=== PATIENT | male | born 1990 | race Caucasian/White ===

== ENCOUNTER → 2017-09-19 | Outpatient (CLI) | payer BC ==
[~2017-09-19] MED LIST: HYDR-5688 PO; LRT5 PO; OXYC-57; ZFRODT4 SL; [UNRECOGNIZED DRUG - REMARK]
[2017-09-19 12:14] LABS: BASO % 0.4 %; BASO ABS # 0.04 K/uL (0-0.2); COMPLETE YES; EOS % 1.2 %; HEMATOCRIT 44.7 % (42-52); IG% 0.4 %; LYMPH % 23.8 %; LYMPH ABS # 2.47 K/uL (1.2-3.4); MEAN CELL VOLUME 92.2 fL (80-100); MEAN CORPUSCULAR HEMOGLOBIN 32.6 pg (25-34); MEAN CORPUSCULAR HGB CONC 35.3 g/dl (32-36); MEAN PLATELET VOLUME 9.7 fL (7.4-10.4); MONO % 9.3 %; NEUT % 64.9 %; PLATELET COUNT 274 K/uL (130-400); RED BLOOD COUNT 4.85 M/uL (4.7-6.1); WHITE BLOOD COUNT 10.38 K/uL (4.8-10.8)
[2017-09-19 12:29] LABS: BLOOD UREA NITROGEN 6 mg/dl (7-18); BUN/CREATININE RATIO 8.4 (10-20); CALCIUM 8.7 mg/dl (8.5-10.1); CARBON DIOXIDE 28 mmol/L (21-32); CHLORIDE 105 mmol/L (98-107); CREATININE 0.69 mg/dl (0.60-1.40); GLUCOSE 91 mg/dl (70-99); POTASSIUM 4.5 mmol/L (3.5-5.1); SODIUM 138 mmol/L (136-145)
== END | disposition home or self-care (01) ==
LOC: C.LAB 11:21
PROVIDERS: ATTEND Physician Assistant Medical
DX: Z01.812 Encounter for preprocedural laboratory examination (principal); Z01.810 Encounter for preprocedural cardiovascular examination

== ENCOUNTER 2017-09-21 05:46 | Day surgery (SDC) | payer BC ==
[2017-09-20 08:21] VITALS: BMI 44.0
--- NOTE | 2017-09-20 10:43 | History and Physical ---
History & Physical Date Sep 20, 2017. Chief Complaint Patient presents a 26-year-old white male 5 foot 11:15 pounds with complaints of ongoing pain was left knee is a chondral lesion was patella chondral fracture enlarged once a conservative therapy and presents for chondroplasty History of Present Illness Continued pain about his left knee is Nourse wants to conservative therapy including physical therapy anti-inflammatories relative rest injection presents for arthroscopy chondroplasty The patient is a 26 year old male with complaints of Additional History Hepatic Disease: No Endocrine Disorder: No Kidney Disease: No Hypertension: No Heart Disease: No Bleeding Tendencies: No Infectious Diseases: No Allergies Coded Allergies: NO KNOWN DRUG ALLERGIES (Verified Allergy, Unknown, nkda, 09/20/17) Home Medications No Active Prescriptions or Reported Meds Physical Examination Skin: warm/dry, no rash Eyes: normal inspection, EOMI, sclerae normal ENT: normal ENT inspection, pharynx normal Head: normocephalic, atraumatic Neck: supple, no adenopathy, trachea midline Respiratory/Chest: lungs clear, normal breath sounds, no respiratory distress Cardiovascular: regular rate, rhythm, no edema, no murmur Abdomen / GI: normal bowel sounds, non tender Back: normal inspection Extremities: normal inspection, normal range of motion Diagnosis Patient is a 26-year-old white male with left knee with chondral fracture patella for arthroscopic evaluation possible chondroplasty Plan of Treatment Plan for arthroscopy arthroscopic chondroplasty patella P management DVT prophylaxis.
[~2017-09-21] VITALS: Ht 180.3 cm; Wt 143.0 kg
[2017-09-21] MEDS ORDERED: CEFAZOLIN 1000MG IV PUSH 5 ML IV SCH (06:00)
[2017-09-21] MEDS ORDERED: LACTATED RINGER'S 1000ML 1,000 ML IV SCH ×2 (06:00)
[2017-09-21] MEDS ORDERED: CEFAZOLIN 2000MG IV PUSH 10 ML IV SCH (06:00)
[2017-09-21 06:24] VITALS: BP 154/115; PULSE 114; TEMP 36.7; O2SAT 97; Ht 180.3 cm; Wt 143.0 kg
[2017-09-21] MEDS ORDERED: CEFAZOLIN SOD 3000MG/15 ML IV PUSH IV ONE (06:35)
--- NOTE | 2017-09-21 07:01 | History & Physical Bridge Note ---
H&P Re-Evaluation Bridge Note: I have examined the patient, reviewed the History & Physical and in the interval since the performance of the History & Physical I have noted the following changes of clinical significance: No changes noted
[2017-09-21] MEDS ORDERED: FENTANYL CITRATE INJ 50 MCG/1 ML 2 ML VIAL ONE (07:03)
[2017-09-21] MEDS ORDERED: PROPOFOL IV EMULSION 10 MG/ML 20 ML VIAL IV ONE (07:03)
[2017-09-21] MEDS ORDERED: LIDOCAINE HCL 2% 2 ML VIAL (20MG/ML) ONE (07:07)
[2017-09-21] MEDS ORDERED: SUCCINYLCHOLINE CHLORIDE 20 MG/ML 10 ML VIAL IV ONE (07:07)
[2017-09-21] MEDS ORDERED: DEXAMETHASONE SOD INJ 4 MG/ML VIAL ONE (07:07)
[2017-09-21] MEDS ORDERED: ONDANSETRON INJ 2 MG/ML 2 ML VIAL ONE (07:07)
[2017-09-21] MEDS ORDERED: ONDANSETRON INJ 2 MG/ML 2 ML VIAL IV PRN ×2 (07:15→08:45)
[2017-09-21] MEDS ORDERED: FLUMAZENIL 0.1 MG/1 ML 10 ML VIAL IV PRN (07:15)
[2017-09-21] MEDS ORDERED: PHENYLEPHRINE 100MCG/ML 5ML SYR IV PRN (07:15)
[2017-09-21] MEDS ORDERED: MEPERIDINE HCL 25 MG/ML CARP IV PRN (07:15)
[2017-09-21] MEDS ORDERED: HYDROmorphone INJ 2 MG/ML SYR/VIAL IV PRN (07:15)
[2017-09-21] MEDS ORDERED: LABETALOL HCL IV 5 MG/ML 20ML IV PRN (07:15)
[2017-09-21] MEDS ORDERED: EpHEDrine SULFATE INJ 50 MG/ML AMP IV PRN (07:15)
[2017-09-21] MEDS ORDERED: FENTANYL CITRATE INJ 50 MCG/1 ML 2 ML VIAL IV PRN (07:15)
[2017-09-21] MEDS ORDERED: ATROPINE SULFATE 0.1 MG/ML 5ML SYR IV PRN (07:15)
[2017-09-21] MEDS ORDERED: NALOXONE HCL 0.4 MG/1 ML VIAL/CARP IV PRN (07:15)
[2017-09-21] MEDS ORDERED: BUPIVACAINE/EPINEPHRINE 0.5% MPF 1:200,000 30 ML VIAL ONE (08:33)
[2017-09-21] MEDS ORDERED: KETOROLAC TROMETHAMINE 30 MG/ML VIAL ONE (08:43)
[2017-09-21] MEDS ORDERED: MoRPHine SULFATE 2 MG/ML CARP IV PRN (08:45)
[2017-09-21] MEDS ORDERED: OXYCODONE HCL IR 5 MG TAB (IMMEDIATE RELEASE) PO PRN ×2 (08:45)
[2017-09-21] MEDS ORDERED: KETOROLAC TROMETHAMINE 30 MG/ML VIAL IV. PRN (08:45)
[2017-09-21] MEDS ORDERED: PHENYLEPHRINE 100MCG/ML 5ML SYR ONE (08:49)
--- NOTE | 2017-09-21 08:51 | Discharge Instructions ---
Discharge Instructions Date of Service Sep 21, 2017. Visit Reason for Visit: Left Knee Chondromalacia Patellae Discharge Discharge Diagnosis / Problem: Left Knee Chondromalacia Discharge Goals Goal(s): Decrease discomfort, Improve function, Increase independence Activity Recommendations Activity Limitations: per Instructions/Follow-up section Weightbearing Status: Left weightbearing (as tolerated) Anesthesia . Post Anesthesia Instructions: If you have had General Anesthesia or IV Sedation: * Do not drive today. * Resume driving when surgeon permits. * Do not make important decisions or sign legal documents today. * Call surgeon for: 1. Temperature elevations greater than 101 degrees F. 2. Uncontrollable pain. 3. Excessive bleeding. 4. Persistent nausea and vomiting. 5. Medication intolerance (nausea, vomiting or rash). * For nausea and vomiting use only clear liquids such as: tea, soda, bouillon until nausea subsides, then gradually increase diet as tolerated. * If you have any concerns or questions, call your surgeon's office. If physician is unavailable and it is an emergency, call 911 or go to the nearest emergency room. . Instructions / Follow-Up Instructions / Follow-Up ACTIVITY RECOMMENDATIONS: * You may walk on the leg with or without crutches as comfort permits. * Bending of the knee should start at once. * Do not shower for 48 hours following surgery. SPECIAL CARE INSTRUCTIONS: * You may cleanse the skin adjacent to the small wounds with soap and water at the time of the first dressing change. * The application of an ice bag to the front and sides of the knee will decrease swelling and discomfort for the first 48 hours. * The small incisions may be sore and develop bruising. This bruising does not require any special care. SPECIAL PRECAUTIONS: * If you experience unusual pain unrelieved by prescriptions, temperature elevation (100 degrees F. or above) or progressive swelling or bleeding, you should contact our office at for further evaluation. * You may have been prescribed pain medication. If you experience nausea and/or fine skin rash, discontinue this medication and contact our office at for an alternate medication. DRESSING: * Dressing should be comfortable and absorb any leakage of fluid and/or blood. * The dressing may become moist or bloodstained. * Dressing may be removed 48 hours after surgery and bandaids placed over the small surgical incisions. If can be removed sooner if it becomes very soiled or loose. * Bandaids may be used over next several days as needed and can be discontinued when there is not further drainage from the wounds. FOLLOW UP VISIT: If appointment is not already scheduled: Please call [facility] to make a follow-up appointment for 10 -14 days from the day of your surgery at . Diet Recommendations Recommended Home Diet: resume previous diet Pending Studies Studies pending at discharge: no Medical Emergencies . Who to Call and When: Medical Emergencies: If at any time you feel your situation is an emergency, please call 911 immediately. . Non-Emergent Contact Non-Emergency issues call your: Surgeon Call Non-Emergent contact if: temperature is above 101.5, your pain is not controlled, your pain is worsening, wound has increased drainage, wound has increased redness . . "Provider Documentation" section prepared by Leandro Allred. . [place] Drug Monitoring Program Search Results: patient reviewed within database, no issues identified
[2017-09-21] MEDS ORDERED: HYDR-5688 PO (08:52)
--- NOTE | 2017-09-21 09:09 | [facility] Operative Report ---
Operative Report Operative Date Sep 21, 2017. Pre-Operative Diagnosis Chondral lesion grade 3 patella with large symptomatically synovial plica Post-Operative Diagnosis Chondral lesion patella with large symptomatically medial synovial plica Procedure(s) Performed Arthroplasty patella for grade 3 chondral lesion medial lateral facet was resection medial synovial plica Surgeon Seth Demolition Worker Surgeon(s) none Estimated Blood Loss 2 mL Findings Patient presents with complaints of ongoing pain Nourse wants to conservative therapy for chondral lesion of his medial lateral facet of patella as well as large symptomatically medial synovial plica Complication(s) None Disposition Recovery Room / PACU Indications Patient presents been Nourse wants to conservative therapy including physical therapy anti-inflammatories relative rest activity modification presents a for arthroscopy times surgeries was grade 3 chondral lesion along medial lateral facet of patella chondroplasty as well as resection of medial synovial plica was performed. Description of Procedure After proper prepping draping left lower family or scopic examination revealed evidence of a large cinematic medial synovial plica is incised there was a chondral lesion stellate in nature grade 3 involving the patella was medial lateral facets a chondroplasty back to stable margin was performed the medial meniscus of his oxaprozin intact lateral meniscus was visualized and probed noted be intact the anterior posterior crucially was visualized and probed and intact no other significant the chondral defects were noted socially informed thorough chondroplasty resection of plical particular lateral debris was removed skin portals were closed 4-0 nylon injection of 20 mL of half percent Marcaine with epinephrine was injected patient was taken recovery in stable condition after placement of sterile compressive dressing I attest to the content of the Intraoperative Record and any orders documented therein. Any exceptions are noted below.
[2017-09-21] MEDS ORDERED: METOPROLOL TARTRATE 1 MG/ML VIAL ONE (09:39)
[2017-09-21] MEDS ORDERED: METOPROLOL TARTRATE 1 MG/ML VIAL IV STA (09:39)
--- NOTE | 2017-09-21 09:41 | Anesthesiology Progress Note ---
Anesthesia Post Op Note Date & Time Sep 21, 2017 at 09:40 Vital Signs Pain Intensity: 0 Vital Signs Past 12 Hours Date Time Temp Pulse Resp B/P (MAP) Pulse Ox O2 Delivery O2 Flow Rate FiO2 09/21/17 09:25 110 18 122/78 93 Room Air 09/21/17 09:15 110 15 138/68 96 Oxymask 8 09/21/17 09:05 36 117 16 140/82 94 Oxymask 8 09/21/17 06:24 36.7 114 24 154/115 (128) 97 Room Air Notes Mental Status: alert / awake / arousable, participated in evaluation Pt Amnestic to Procedure: Yes Nausea / Vomiting: adequately controlled Pain: adequately controlled Airway Patency, RR, SpO2: stable & adequate BP & HR: stable & adequate, see Notes Hydration State: stable & adequate Anesthetic Complications: no major complications apparent The patient is doing well. He was tachycardic at baseline and is being given a dose of metoprolol in the PACU. He is otherwise stable, awake, and comfortable.
[2017-09-21 09:50] VITALS: BP 150/67; PULSE 91; TEMP 36.5; O2SAT 92
[2017-09-21 10:20] VITALS: BP 149/64; PULSE 96; TEMP 36.5; O2SAT 92
[2017-09-21 10:50] VITALS: BP 157/85; PULSE 103; TEMP 36.5; O2SAT 94
== END 2017-09-21 10:45 | disposition home or self-care (01) ==
LOC: C.ACU 05:46
PROVIDERS: ATTEND Orthopaedic Surgery
DX: S82.015A Nondisplaced osteochondral fracture of left patella, initial encounter for closed fracture (principal); X58.XXXA Exposure to other specified factors, initial encounter; E66.01 Morbid (severe) obesity due to excess calories; I10 Essential (primary) hypertension; Z87.442 Personal history of urinary calculi

== ENCOUNTER 2022-03-02 11:59 | Inpatient (IN) ==
--- NOTE | 2022-03-02 12:37 | Emergency Department Note ---
Impression & Plan Hypoxia ADMIT ED Provider Note HPI: The patient is a morbidly obese 31-year-old male who presents the emergency department with a chief complaint of shortness of breath. Patient states his symptoms have been ongoing for the past 3 weeks. Patient states that he has be en having persistent shortness of breath that has been constant during this time. He has had a cough. He states that he was placed on azithromycin and antitussive medications and his symptoms did transiently improve for several days but then returned. He went to his PCPs office today and was noted to be hypoxic, he was placed on nasal cannula oxygen and referred to the ED for further evaluation. Patient denies any chest pain throughout the past 3 weeks, denies any recent fevers but states he has had a cough. He states he did have 1 rapid COVID test that was negative during this time period. Patient is hemodynamically stable on nasal cannula oxygen on my initial assessment ROS: -Pulmonary: Shortness of breath, hypoxia *10 point review systems was conducted and is otherwise negative unless stated above *Outpatient medications and allergy history reviewed PE: General: Alert, NAD HEENT: Normocephalic, atraumatic Eyes: Extraocular eye movement is intact, no scleral erythema Pulmonary: Slightly diminished bilaterally without crackles or wheezing Cardio: Regular rate and rhythm GI: Abdomen is soft, nontender : No suprapubic tenderness MSK: No evidence of trauma or malformation of the extremities, no edema Skin: No evidence of rash Neuro: Alert, no focal deficits Psychiatric: Cooperative monitoring coordinator: - An order was placed for continuous cardiac monitoring - Patient was noted to be in sinus rhythm with rate of 90 EKG: Rate: 89 Rhythm: Normal sinus rhythm Intervals: Within normal limits ST changes: No ST elevation Time: 1621 Medical Decision Making: Patient presented to the emergency department with a chief complaint of shortness of breath, noted to have hypoxia at his outpatient providers office today and was sent to the ED for further assessment. He denies any chest pain, on arrival he is stable on nasal cannula oxygen, was initially noted to be hypoxic with oxygen saturation at 89% in triage. Shortly after arrival IV was established, lab work obtained, chest x-ray was ordered that shows evidence of a right lower lobe basilar opacity, atelectasis versus pneumonia. Patient does have a leukocytosis therefore blood cultures were drawn, lactic acid was ordered. D-dimer is within normal limits, low suspicion for PE as the source of his hypoxia. His venous blood gas does show evidence of hypercarbic respiratory failure with partial metabolic compensation on BMP with a serum bicarbonate level of 39. Patient is acidotic with a pH of 7.27. COVID-19 testing was obtained and is positive. I suspect this is the source of the patient's hypercarbic respiratory failure with viral pneumonia on chest x-ray. I discussed these findings with the on-call hospitalist for [facility], Dr. Reese, and the patient was admitted in stable condition for further care. * CRITICAL CARE TIME: ( 37 ) minutes -Stabilization of hypoxic respiratory failure with oxygen saturations less than 90% on room air requiring supplemental oxygen for stabilization, management of COVID-19 pneumonia, time spent at the bedside and arrangement of admission Diagnosis: 1. Hypoxic respiratory failure with hypercarbia 2. COVID-19 pneumonia, right-sided 3. Respiratory acidosis with partial metabolic compensation 4. Leukocytosis 5. Morbid Obesity Disposition: Admission Emile Muñiz DO Emergency Medicine Past Med/Surg History Social History Smoking Status: Never smoker Preferred Language: Chadian Feels Safe at Home: Yes Allergies Allergies Allergy/AdvReac Type Severity Reaction Status Date / Time No Known Allergies Allergy Verified 03/02/22 16:01 Home Meds Home Medications Medication Instructions Recorded Confirmed albuterol sulfate 90 mcg/actuation 2 puff INHALATION Q6H PRN 03/02/22 03/02/22 aerosol inhaler amoxicillin 875 mg-potassium 1 tab PO BID 03/02/22 03/02/22 clavulanate 125 mg tablet benzonatate 100 mg capsule 100 - 200 mg PO TID PRN 03/02/22 03/02/22 fluticasone propionate 50 2 spray INTRANASAL DAILY 03/02/22 03/02/22 mcg/actuation nasal spray,suspension Results & Data (ED) Vital Signs Vital Signs - 24 hr 03/02/22 12:14 03/02/22 15:41 03/02/22 15:49 Temperature 36.7 C Temperature Source Oral Pulse Rate 102 H 89 Pulse Rate [Left Finger] 89 Pulse Rhythm Regular Pulse Rhythm [Left Finger] Regular Pulse Strength [Left Finger] Normal Respiratory Rate 18 19 19 Respiratory Effort / Characteristics Non-Labored Spontaneous Non-Labored Spontaneous Respiratory Depth Normal Normal Normal Respiratory Pattern Regular Regular Blood Pressure 166/105 H Blood Pressure [Left Arm] Blood Pressure Mean 125 Blood Pressure Mean [Left Arm] Blood Pressure Position Sitting Blood Pressure Position [Left Arm] Pulse Oximetry 89 L 94 98 Oxygen Delivery Method Room Air Nasal Cannula Nasal Cannula Oxygen Flow Rate 2 2 Sepsis Recent Fever Within 48 Hours No Sepsis New/Unexplained Change in Mental Status No Sepsis Action Taken by Nursing No Action Required 03/02/22 17:00 Temperature Temperature Source Pulse Rate Pulse Rate [Left Finger] 89 Pulse Rhythm Pulse Rhythm [Left Finger] Pulse Strength [Left Finger] Normal Respiratory Rate 18 Respiratory Effort / Characteristics Non-Labored Spontaneous Respiratory Depth Normal Respiratory Pattern Regular Blood Pressure Blood Pressure [Left Arm] 166/100 H Blood Pressure Mean Blood Pressure Mean [Left Arm] 122 Blood Pressure Position Blood Pressure Position [Left Arm] Sitting Pulse Oximetry 96 Oxygen Delivery Method Nasal Cannula Oxygen Flow Rate 2 Sepsis Recent Fever Within 48 Hours Sepsis New/Unexplained Change in Mental Status Sepsis Action Taken by Nursing Laboratory Data Result diagrams: 03/02/22 12:25 03/02/22 12:25 Lab Results 03/02/22 03/02/22 03/02/22 Range/Units 12:25 12:25 12:25 WBC 13.49 H (4.8-10.8) K/uL RBC 4.86 (4.7-6.1) M/uL Hgb 14.6 (14.0-18.0) g/dL Hct 46.9 (42-52) % MCV 96.5 (80-100) fL MCH 30.0 (25-34) pg MCHC 31.1 L (32-36) g/dL RDW Std Deviation 49.9 H (36.4-46.3) fL RDW Coeff of Ankit 14.1 (11.5-14.5) % Plt Count 341 (130-400) K/uL MPV 10.2 (7.4-10.4) fL Immature Gran % (Auto) 0.5 % Neut % (Auto) 73.3 % Lymph % (Auto) 15.5 % Glasscock % (Auto) 10.2 % Eos % (Auto) 0.4 % Baso % (Auto) 0.1 % Neut # (Auto) 9.89 H (1.4-6.5) K/uL Lymph # (Auto) 2.09 (1.2-3.4) K/uL Glasscock # (Auto) 1.37 H (0.11-0.59) K/uL Eos # (Auto) 0.05 (0-0.5) K/uL Baso # (Auto) 0.02 (0-0.2) K/uL Immature Gran # (Auto) 0.07 H (0.00-0.02) K/uL Absolute Nucleated RBC 0.04 H (0-0) K/uL Nucleated RBC % (auto) 0.3 % PT 11.8 (9.0-12.0) Seconds INR 1.1 (0.9-1.1) APTT 26.2 (21.0-31.0) Seconds PTT Ratio 1.0 D-Dimer 460 (0-500) ug/L FEU VBG pH (7.36-7.41) VBG pCO2 (38-50) mmHg VBG pO2 mmHg VBG HCO3 mmol/L VBG O2 Saturation % VBG Base Excess mEq/L Barometric Pressure mm/Hg Sodium 141 (136-145) mmol/L Potassium 3.9 (3.5-5.1) mmol/L Chloride 98 (98-107) mmol/L Carbon Dioxide 39 H (21-32) mmol/L Anion Gap 4 (3-11) BUN 8 (6-23) mg/dl Creatinine 0.72 (0.6-1.4) mg/dl Est Cr Clr Drug Dosing 255.8 ml/min Est GFR ( Amer) 145.1 ml/min Est GFR (Non-Af Amer) 125.2 ml/min BUN/Creatinine Ratio 11.1 (10-20) Glucose 104 H (70-99(Fasting)) mg/dl Lactate (0.4-2.0) mmol/L Calcium 8.9 (8.5-10.1) mg/dl Magnesium 2.1 (1.7-2.4) mg/dl Total Bilirubin 0.7 (0.2-1.0) mg/dl AST 19 (13-39) U/L ALT 30 (7-52) U/L Alkaline Phosphatase 55 (34-104) U/L Total Protein 7.2 (6.0-8.3) gm/dl Albumin 4.0 (3.4-5.0) gm/dl Globulin 3.2 (2.5-4.0) gm/dl Albumin/Globulin Ratio 1.3 (0.9-2) Procalcitonin (0-0.5) ng/ml SARS-CoV-2 (PCR) (Negative) Influenza Type A (PCR) (Neg) Influenza Type B (PCR) (Neg) RSV (RT-PCR) (Neg) 03/02/22 03/02/22 03/02/22 Range/Units 15:20 15:36 16:08 WBC (4.8-10.8) K/uL RBC (4.7-6.1) M/uL Hgb (14.0-18.0) g/dL Hct (42-52) % MCV (80-100) fL MCH (25-34) pg MCHC (32-36) g/dL RDW Std Deviation (36.4-46.3) fL RDW Coeff of Ankit (11.5-14.5) % Plt Count (130-400) K/uL MPV (7.4-10.4) fL Immature Gran % (Auto) % Neut % (Auto) % Lymph % (Auto) % Glasscock % (Auto) % Eos % (Auto) % Baso % (Auto) % Neut # (Auto) (1.4-6.5) K/uL Lymph # (Auto) (1.2-3.4) K/uL Glasscock # (Auto) (0.11-0.59) K/uL Eos # (Auto) (0-0.5) K/uL Baso # (Auto) (0-0.2) K/uL Immature Gran # (Auto) (0.00-0.02) K/uL Absolute Nucleated RBC (0-0) K/uL Nucleated RBC % (auto) % PT (9.0-12.0) Seconds INR (0.9-1.1) APTT (21.0-31.0) Seconds PTT Ratio D-Dimer (0-500) ug/L FEU VBG pH 7.27 L (7.36-7.41) VBG pCO2 89 H (38-50) mmHg VBG pO2 31 mmHg VBG HCO3 40 mmol/L VBG O2 Saturation < 60.0 % VBG Base Excess 9.1 mEq/L Barometric Pressure 731.9 mm/Hg Sodium (136-145) mmol/L Potassium (3.5-5.1) mmol/L Chloride (98-107) mmol/L Carbon Dioxide (21-32) mmol/L Anion Gap (3-11) BUN (6-23) mg/dl Creatinine (0.6-1.4) mg/dl Est Cr Clr Drug Dosing ml/min Est GFR ( Amer) ml/min Est GFR (Non-Af Amer) ml/min BUN/Creatinine Ratio (10-20) Glucose (70-99(Fasting)) mg/dl Lactate 0.8 (0.4-2.0) mmol/L Calcium (8.5-10.1) mg/dl Magnesium (1.7-2.4) mg/dl Total Bilirubin (0.2-1.0) mg/dl AST (13-39) U/L ALT (7-52) U/L Alkaline Phosphatase (34-104) U/L Total Protein (6.0-8.3) gm/dl Albumin (3.4-5.0) gm/dl Globulin (2.5-4.0) gm/dl Albumin/Globulin Ratio (0.9-2) Procalcitonin (0-0.5) ng/ml SARS-CoV-2 (PCR) POSITIVE A* (Negative) Influenza Type A (PCR) Negative (Neg) Influenza Type B (PCR) Negative (Neg) RSV (RT-PCR) Negative (Neg) 03/02/22 Range/Units 16:08 WBC (4.8-10.8) K/uL RBC (4.7-6.1) M/uL Hgb (14.0-18.0) g/dL Hct (42-52) % MCV (80-100) fL MCH (25-34) pg MCHC (32-36) g/dL RDW Std Deviation (36.4-46.3) fL RDW Coeff of Ankit (11.5-14.5) % Plt Count (130-400) K/uL MPV (7.4-10.4) fL Immature Gran % (Auto) % Neut % (Auto) % Lymph % (Auto) % Glasscock % (Auto) % Eos % (Auto) % Baso % (Auto) % Neut # (Auto) (1.4-6.5) K/uL Lymph # (Auto) (1.2-3.4) K/uL Glasscock # (Auto) (0.11-0.59) K/uL Eos # (Auto) (0-0.5) K/uL Baso # (Auto) (0-0.2) K/uL Immature Gran # (Auto) (0.00-0.02) K/uL Absolute Nucleated RBC (0-0) K/uL Nucleated RBC % (auto) % PT (9.0-12.0) Seconds INR (0.9-1.1) APTT (21.0-31.0) Seconds PTT Ratio D-Dimer (0-500) ug/L FEU VBG pH (7.36-7.41) VBG pCO2 (38-50) mmHg VBG pO2 mmHg VBG HCO3 mmol/L VBG O2 Saturation % VBG Base Excess mEq/L Barometric Pressure mm/Hg Sodium (136-145) mmol/L Potassium (3.5-5.1) mmol/L Chloride (98-107) mmol/L Carbon Dioxide (21-32) mmol/L Anion Gap (3-11) BUN (6-23) mg/dl Creatinine (0.6-1.4) mg/dl Est Cr Clr Drug Dosing ml/min Est GFR ( Amer) ml/min Est GFR (Non-Af Amer) ml/min BUN/Creatinine Ratio (10-20) Glucose (70-99(Fasting)) mg/dl Lactate (0.4-2.0) mmol/L Calcium (8.5-10.1) mg/dl Magnesium (1.7-2.4) mg/dl Total Bilirubin (0.2-1.0) mg/dl AST (13-39) U/L ALT (7-52) U/L Alkaline Phosphatase (34-104) U/L Total Protein (6.0-8.3) gm/dl Albumin (3.4-5.0) gm/dl Globulin (2.5-4.0) gm/dl Albumin/Globulin Ratio (0.9-2) Procalcitonin 0.05 (0-0.5) ng/ml SARS-CoV-2 (PCR) (Negative) Influenza Type A (PCR) (Neg) Influenza Type B (PCR) (Neg) RSV (RT-PCR) (Neg) Administered Medications Discontinued Medications Albuterol (Albut/Ipratrop 3mg/0.5mg Neb 3 Ml Vial) 3 ml NEB NOW STA; Protocol Stop: 03/02/22 15:53 Last Admin: 03/02/22 16:29 Dose: 3 ml Documented by: [id number] Imaging Data Radiologist's Impression: Chest X-Ray 03/02/22 12:19 XR chest 1V portable CLINICAL HISTORY: Shortness of breath. COMPARISON STUDY: CT of the abdomen and pelvis October 28, 2006. FINDINGS: Exam is compromised by suboptimal penetration. Moderate elevation of the right hemidiaphragm has increased. Right lower lung opacity favors at electasis. There is no pneumothorax or pleural effusion. No consolidation to suggest pneumonia. Cardiac size is normal. IMPRESSION: 1. Increase in moderate elevation of the right hemidiaphragm. 2. Right basilar opacity which favors atelectasis. No consolidation to suggest pneumonia. ACT 112: Negative or not required by law. Electronically signed by: Raudel Eagle M.D. 03/02/2022 1:11 PM Discharge Plan Visit Data Chief Complaint: Shortness of Breath/Dyspnea Stated Complaint: SOB, REFERRED BY DR ED Provider: Emile Muñiz Discharge Problem: Hypoxia Forms Stand Alone Forms: [facility] Prescriptions Prescriptions: No Action benzonatate 100 mg capsule 100 - 200 mg PO TID PRN (Reason: Cough) RF: 0 albuterol sulfate 90 mcg/actuation HFA aerosol inhaler 2 puff INHALATION Q6H PRN (Reason: Shortness Of Breath Or Wheezing) RF: 0 fluticasone propionate 50 mcg/actuation spray,suspension 2 spray INTRANASAL DAILY RF: 0 amoxicillin-pot clavulanate 875-125 mg tablet 1 tab PO BID RF: 0 Referrals Referrals: Mo Calabrese MD [Primary Care Provider] -
[2022-03-02 13:12] LABS: D Dimer 460 ug/L FEU (0-500); INR 1.1 (0.9-1.1); Partial Thromboplastin Time 26.2 Seconds (21.0-31.0); Prothrombin Time 11.8 Seconds (9.0-12.0)
--- NOTE | 2022-03-02 13:13 | XRay Report ---
XR chest 1V portable CLINICAL HISTORY: Shortness of breath. COMPARISON STUDY: CT of the abdomen and pelvis October 28, 2006. FINDINGS: Exam is compromised by suboptimal penetration. Moderate elevation of the right hemidiaphrag m has increased. Right lower lung opacity favors atelectasis. There is no pneumothorax or pleural eff usion. No consolidation to suggest pneumonia. Cardiac size is normal. IMPRESSION: 1. Increase in moderate elevation of the right hemidiaphragm. 2. Right basilar opacity which favors atelectasis. No consolidation to suggest pneumonia. ACT 112: Negative or not required by law. Electronically signed by: Raudel Eagle M.D. 03/02/2022 1:11 PM
[2022-03-02 13:21] LABS: Albumin Globulin Ratio 1.3 (0.9-2); BUN Creatinine Ratio 11.1 (10-20); Bilirubin,Total 0.7 mg/dl (0.2-1.0); Calcium 8.9 mg/dl (8.5-10.1); Creatinine Clr Calc Pharmacy 255.8 ml/min; Est GFR (African American) 145.1 ml/min; Est GFR (Non-African American) 125.2 ml/min; Globulin 3.2 gm/dl (2.5-4.0); Magnesium 2.1 mg/dl (1.7-2.4); Potassium 3.9 mmol/L (3.5-5.1); Total Protein 7.2 gm/dl (6.0-8.3)
[2022-03-02 13:23] LABS: Basophils # (auto) 0.02 K/uL (0-0.2); Basophils % (auto) 0.1 %; Eosinophils # (auto) 0.05 K/uL (0-0.5); Eosinophils % (auto) 0.4 %; Hematocrit (blood only) 46.9 % (42-52); Hemoglobin 14.6 g/dL (14.0-18.0); Immature Granulocytes # (auto) 0.07 K/uL (0.00-0.02); Immature Granulocytes % (auto) 0.5 %; Lymphocytes # (auto) 2.09 K/uL (1.2-3.4); Lymphocytes % (auto) 15.5 %; Mean Corpuscular Hgb Conc 31.1 g/dL (32-36); Mean Corpuscular Volume 96.5 fL (80-100); Mean Platelet Volume 10.2 fL (7.4-10.4); Monocytes # (auto) 1.37 K/uL (0.11-0.59); Monocytes % (auto) 10.2 %; Neutrophils # (auto) 9.89 K/uL (1.4-6.5); Neutrophils % (auto) 73.3 %; Nucleated RBC # (auto) 0.04 K/uL (0-0); Nucleated RBC % (auto) 0.3 %; Platelet Count 341 K/uL (130-400); RDW Coefficient of Variation 14.1 % (11.5-14.5); RDW Standard Deviation 49.9 fL (36.4-46.3); Red Blood Count 4.86 M/uL (4.7-6.1); White Blood Count 13.49 K/uL (4.8-10.8)
[2022-03-02 15:44] LABS: Base Excess VBG 9.1 mEq/L; HCO3 VBG 40 mmol/L; PCO2 VBG 89 mmHg (38-50); PO2 VBG 31 mmHg; pH VBG 7.27 (7.36-7.41)
[2022-03-02 15:46] LABS: Oxygen Saturation VBG < 60.0 %
[2022-03-02] MEDS ORDERED: ALBUT/IPRATROP 3MG/0.5MG NEB 3 ML VIAL NEB STA (15:52)
[2022-03-02 16:33] LABS: Influenza A virus by PCR Negative (Neg); Influenza B virus by PCR Negative (Neg); RSV by PCR Negative (Neg)
--- NOTE | 2022-03-02 16:43 | Electrocardiogram Report ---
Test Reason : Blood Pressure : / mmHG Vent. Rate : 089 BPM Atrial Rate : 089 BPM P-R Int : 126 ms QRS Dur : 076 ms QT Int : 390 ms P-R-T Axes : 068 072 050 degrees QTc Int : 474 ms Poor data quality, interpretation may be adversely affected Normal sinus rhythm Poor R wave progression, consider anterior [place] vs. lead placement vs. LVH Diffuse Nonspecific T wave abnormality Abnormal ECG When compared with ECG of 19-SEP-2017 11:44, Minimal criteria for Anterior infarct are now Present Nonspecific T wave abnormality now evident in Anterior leads Confirmed by Tavo Red ([id number]) on 03/02/2022 4:42:25 PM Referred By: REFERRED SELF Confirmed By:Tavo Red
[2022-03-02 16:50] LABS: SARS CoV2 RNA(COVID-19) InHosp POSITIVE (Negative)
[2022-03-02] MEDS ORDERED: dexAMETHasone 8 MG in SYRINGE 0 ML IV ONE (16:53)
[2022-03-02] MEDS ORDERED: ALBUTEROL HFA 8 GM INHALER INH PRN (18:22)
[2022-03-02 18:25] LABS: C Reactive Protein 2.7 mg/dl (0-0.5)
[2022-03-02 18:29] LABS: Troponin I High Sensitivity 6.7 pg/ml (0-20)
[2022-03-02] MEDS: guaiFENesin 600 MG TABCR PO SCH (20:18)
[2022-03-02] MEDS: ENOXAPARIN INJ 40 MG/0.4 ML SYR SQ SCH (20:18)
--- NOTE | 2022-03-02 21:16 | History & Physical Report ---
Date of Service March 02, 2022 Assessment & Plan (1) COVID-19 virus infection: (2) Hypoxia: (3) Obesity, morbid, BMI 50 or higher: Plan: Pt is a 31 y/o M with hx of obesity admitted for COVID infection with Hypoxia. COVID infection with Hypoxia: -pt is doing well on 2L NC -has been having symptoms for 2-3 weeks - CXR: Right basilar opacity which favors atelectasis. No consolidation to suggest pneumonia. -Procal: neg -LFTs are normal and normal CrCl -will start the pt on Dexamethasone -continue on oxygen supplement right now -encourage frequent change of position (including proning) -daily CMP and CRP -DVT ppx ordered: Lovenox Diet: Heart healthy DVT PPx: Lovenox Code Status:FULL CODE Emergency Contact: mother: Alayna [phone] Admission and Anticipated Discharge Date Admission Date: March 02, 2022 History of Present Illness Chief Complaint: SOB Primary Care Provider: Mo Calabrese MD Pt is a 31 y/o M with hx of obesity came to the ER with 3 weeks history of intermittent cough and worsening SOB. Per pt 3 weeks ago pt developed fever (temp of 101F), chills and fatigue. He initially recovered then about 1 week after he developed cough, fatigue, nasal congestion and ear congestion. He contacted his pcp and he was started on augmentin and tessalon perles (~1 week ago). His home covid test has been negative. Pt recently developed SOB therefore went to PCP office, he was sent from pcp office due to hypoxia Pt had 2 shots of COVID vaccine. At bedside: per pt with oxygen supplement he is feeling better. Denied any CP, abd pain, N/V. No prior hx of smoking, Asthma or COPD. Allergies Allergy/AdvReac Type Severity Reaction Status Date / Time No Known Allergies Allergy Verified 03/02/22 16:01 Home Medications Medication Instructions Recorded Confirmed Type albuterol sulfate 90 mcg/actuation 2 puff INHALATION Q6H PRN 03/02/22 03/02/22 History aerosol inhaler amoxicillin 875 mg-potassium 1 tab PO BID 03/02/22 03/02/22 History clavulanate 125 mg tablet benzonatate 100 mg capsule 100 - 200 mg PO TID PRN 03/02/22 03/02/22 History fluticasone propionate 50 2 spray INTRANASAL DAILY 03/02/22 03/02/22 History mcg/actuation nasal spray,suspension Past Med/Surg History Medical History (Updated 03/02/22 @ 21:13 by Xavier Galindo MD) Obesity, morbid, BMI 50 or higher Family History Other Coronary heart disease Diabetes Social History Smoking Status: Never smoker Preferred Language: Telugu Feels Safe at Home: Yes Review of Systems Review of Systems: At least 10 Review of systems were reviewed and all negative except as indicated in HPI Physical Exam Physical Exam: General:.obese pt, NAD HEENT:.NC in place (2L), Normocephalic and atraumatic, Normal Conjunctiva, EOMI, Sclera is non-icteric Lungs:.overall good air entry b/l, no wheezing or crackles Heart:. Normal S1, S2, no murmur Abdominal:. ND, Soft, NT, normal BS MSK:. No deformities of UE and LE, No leg edema Psych:. AAOx3, normal affect Results & Data Results & [facility] ([facility]) Vital Signs (Past 12 Hours) Vital Signs Temp Pulse Pulse Resp BP BP Pulse Ox 03/02/22 18:27 89 19 170/90 H 93 03/02/22 18:22 89 19 170/98 H 93 03/02/22 17:00 89 18 166/100 H 96 03/02/22 15:49 89 89 19 98 03/02/22 15:41 19 94 03/02/22 12:14 36.7 C 102 H 18 166/105 H 89 L Pulse Ox 03/02/22 18:27 03/02/22 18:22 94 03/02/22 17:00 03/02/22 15:49 03/02/22 15:41 03/02/22 12:14 Laboratory Results Short CBC 03/02/22 Range/Units 12:25 WBC 13.49 H (4.8-10.8) K/uL Hgb 14.6 (14.0-18.0) g/dL Hct 46.9 (42-52) % Plt Count 341 (130-400) K/uL BMP 03/02/22 12:25 Sodium 141 Potassium 3.9 Chloride 98 Carbon Dioxide 39 H BUN 8 Creatinine 0.72 Glucose 104 H Calcium 8.9 Liver Function 03/02/22 Range/Units 12:25 Total Bilirubin 0.7 (0.2-1.0) mg/dl AST 19 (13-39) U/L ALT 30 (7-52) U/L Alkaline Phosphatase 55 (34-104) U/L Albumin 4.0 (3.4-5.0) gm/dl Diagnostic Findings Chest X-Ray 03/02/22 12:19 XR chest 1V portable CLINICAL HISTORY: Shortness of breath. COMPARISON STUDY: CT of the abdomen and pelvis October 28, 2006. FINDINGS: Exam is compromised by suboptimal penetration. Moderate elevation of the right hemidiaphragm has increased. Right lower lung opacity favors atelectasis. There is no pneumothorax or pleural effusion. No consolidation to suggest pneumonia. Cardiac size is normal. IMPRESSION: 1. Increase in moderate elevation of the right hemidiaphragm. 2. Right basilar opacity which favors atelectasis. No consolidation to suggest pneumonia. ACT 112: Negative or not required by law. Electronically signed by: Raudel Eagle M.D. 03/02/2022 1:11 PM Code Status & VTE Plan VTE Prophylaxis Plan VTE Prophylaxis will be ordered: Yes
[2022-03-03] MEDS: guaiFENesin 600 MG TABCR PO SCH ×2 (08:10→20:12)
[2022-03-03] MEDS: ENOXAPARIN INJ 40 MG/0.4 ML SYR SQ SCH ×2 (08:10→20:14)
[2022-03-03 08:55] LABS: Hematocrit (blood only) 47.9 % (42-52); Hemoglobin 14.9 g/dL (14.0-18.0); Immature Granulocytes # (auto) 0.07 K/uL (0.00-0.02); Immature Granulocytes % (auto) 0.6 %; Lymphocytes # (auto) 0.69 K/uL (1.2-3.4); Lymphocytes % (auto) 5.7 %; Mean Corpuscular Hemoglobin 30.7 pg (25-34); Mean Corpuscular Hgb Conc 31.1 g/dL (32-36); Mean Corpuscular Volume 98.6 fL (80-100); Mean Platelet Volume 10.3 fL (7.4-10.4); Monocytes # (auto) 0.54 K/uL (0.11-0.59); Monocytes % (auto) 4.4 %; Neutrophils # (auto) 10.91 K/uL (1.4-6.5); Neutrophils % (auto) 89.3 %; Platelet Count 328 K/uL (130-400); RDW Coefficient of Variation 13.8 % (11.5-14.5); Red Blood Count 4.86 M/uL (4.7-6.1); White Blood Count 12.21 K/uL (4.8-10.8)
[2022-03-03 09:30] LABS: Albumin Globulin Ratio 1.4 (0.9-2); Albumin Level 4.2 gm/dl (3.4-5.0); BUN Creatinine Ratio 11.4 (10-20); Bilirubin,Total 0.8 mg/dl (0.2-1.0); C Reactive Protein 2.49 mg/dl (0-0.5); Creatinine Clr Calc Pharmacy 318.2 ml/min; Est GFR (African American) 146.8 ml/min; Est GFR (Non-African American) 126.6 ml/min; Globulin 3.1 gm/dl (2.5-4.0); Potassium 4.7 mmol/L (3.5-5.1); Total Protein 7.3 gm/dl (6.0-8.3)
[2022-03-03] MEDS: dexAMETHasone 6 MG in SYRINGE 0 ML IV SCH (20:13)
[2022-03-03] MEDS ORDERED: FUROSEMIDE INJ 20 MG/2 ML VIAL IV ONE (21:05)
--- NOTE | 2022-03-03 22:47 | Hospitalist Progress Note ---
Date of Service March 03, 2022 Assessment & Plan (1) COVID-19 virus infection: (2) Hypoxia: (3) Obesity, morbid, BMI 50 or higher: Plan: Pt is a 31 y/o M with hx of obesity admitted for COVID infection with Hypoxia. COVID infection with Hypoxia: -pt is doing well on 2L NC -has been having symptoms for 2-3 weeks - CXR: Right basilar opacity which favors atelectasis. No consolidation to suggest pneumonia. -Procal: neg -LFTs are normal and normal CrCl -Continue Dexamethasone -continue on oxygen supplement right now -Pt wa advised to continue to proning -daily CMP and CRP -Will give Lasix 20mg x1 Diet: Heart healthy DVT PPx: Lovenox Code Status:FULL CODE Emergency Contact: mother: Alayna [phone] Admission and Anticipated Discharge Date Admission Date: March 02, 2022 Subjective Patient was seen and examined For follow-up of shortness of breath due to COVID- 19 Sitting in chair with no acute distress watching TV Patient said his breathing is much better Patient denies any chest pain, wheezing, dizziness, and fever. Review of Systems Review of Systems: All systems reviewed & are unremarkable except as noted in Subjective Physical Exam Physical Exam: General- No acute distress, obesity Head- atraumatic Eyes- PERRL, EOMI, ENT- oropharynx clear Neck- supple, no JVD Lungs- clear to auscultation Heart- regular rhythm; no murmur Abdomen- normal bowel sounds, soft, nontender Extremities- no calf tenderness Neuro- alert, oriented x 3; PERRL, EOMI; no facial palsy; no dysarthria Skin- warm & dry Results & Data Results & Data ([facility]) Vital Signs (Past 12 Hours) Vital Signs Temp Pulse Pulse Resp BP Pulse Ox Pulse Ox 03/03/22 19:33 36.7 C 92 H 18 142/74 H 95 03/03/22 18:22 95 03/03/22 15:51 100 H 03/03/22 15:07 36.3 C L 79 20 165/73 H 96 03/03/22 11:02 36.5 C 91 H 20 141/78 H 97
[2022-03-04] MEDS: ENOXAPARIN INJ 40 MG/0.4 ML SYR SQ SCH ×2 (08:50→20:36)
[2022-03-04] MEDS: guaiFENesin 600 MG TABCR PO SCH ×2 (08:50→20:35)
[2022-03-04 08:56] LABS: BUN Creatinine Ratio 14.3 (10-20); C Reactive Protein 1.2 mg/dl (0-0.5); Calcium 8.7 mg/dl (8.5-10.1); Creatinine Clr Calc Pharmacy 321.4 ml/min; Est GFR (African American) 146.8 ml/min; Est GFR (Non-African American) 126.6 ml/min; Potassium 4.7 mmol/L (3.5-5.1)
[2022-03-04] MEDS ORDERED: ACETAMINOPHEN 325 MG TAB PO ONE (10:20)
[2022-03-04] MEDS: dexAMETHasone 6 MG in SYRINGE 0 ML IV SCH (20:36)
--- NOTE | 2022-03-04 22:09 | Hospitalist Progress Note ---
Date of Service March 04, 2022 Assessment & Plan (1) COVID-19 virus infection: (2) Hypoxia: (3) Obesity, morbid, BMI 50 or higher: Plan: Pt is a 31 y/o M with hx of obesity admitted for COVID infection with Hypoxia. COVID infection with Hypoxia: -has been having symptoms for 2-3 weeks - CXR: Right basilar opacity which favors atelectasis. No consolidation to suggest pneumonia. -Procal: neg -LFTs are normal and normal CrCl -Continue Dexamethasone - CRP trending down from 2.4 to 1.2 -We will titrate oxygen off -Pt wa advised to continue with proning -Overnight pulse oximetry showed pt will require oxygen at night (not sure if accurate since pt has not recovered yet from the covid 19) - Pt will need to get outpatient sleep study DVT PPx: Lovenox Code Status FULL CODE Emergency Contact: mother: Alayna [phone] Admission and Anticipated Discharge Date Admission Date: March 02, 2022 Subjective Patient was seen and examined For follow-up of shortness of breath due to COVID- 19 Sitting in chair with no acute distress watching TV Patient said his breathing is much better Currently he is on 1 L nasal cannula and saturating at 94% Patient denies any chest pain, wheezing, dizziness, and fever. Review of Systems Review of Systems: All systems reviewed & are unremarkable except as noted in Subjective Physical Exam Physical Exam: General- No acute distress, obesity Head- atraumatic Eyes- PERRL, EOMI, ENT- oropharynx clear Neck- supple, no JVD Lungs- clear to auscultation Heart- regular rhythm; no murmur Abdomen- normal bowel sounds, soft, nontender Extremities- no calf tenderness Neuro- alert, oriented x 3; PERRL, EOMI; no facial palsy; no dysarthria Skin- warm & dry Results & Data Results & Data ([facility]) Vital Signs (Past 12 Hours) Vital Signs Temp Pulse Pulse Resp BP Pulse Ox Pulse Ox 03/04/22 20:33 36.7 C 88 18 122/73 94 03/04/22 18:00 92 03/04/22 15:38 36.6 C 83 19 143/84 H 89 L 03/04/22 15:06 88 03/04/22 11:52 36.5 C 90 20 141/78 H 99
[2022-03-05 07:21] LABS: Anion Gap 3 (3-11); BUN Creatinine Ratio 18.8 (10-20); Blood Urea Nitrogen 12 mg/dl (6-23); Calcium 8.4 mg/dl (8.5-10.1); Carbon Dioxide 40 mmol/L (21-32); Chloride 98 mmol/L (98-107); Creatinine Clr Calc Pharmacy 348.1 ml/min; Est GFR (African American) > 150.0 ml/min; Est GFR (Non-African American) 131.4 ml/min; Glucose 126 mg/dl (70-99(Fasting)); Potassium 4.4 mmol/L (3.5-5.1); Sodium 141 mmol/L (136-145)
[2022-03-05] MEDS: guaiFENesin 600 MG TABCR PO SCH (08:02)
[2022-03-05] MEDS: ENOXAPARIN INJ 40 MG/0.4 ML SYR SQ SCH (08:02)
[2022-03-05] MEDS ORDERED: FUROSEMIDE INJ 20 MG/2 ML VIAL IV ONE (15:49)
[2022-03-05] MEDS ORDERED: ENOXAPARIN INJ 60 MG/0.6 ML SYR SQ SCH (20:00)
--- NOTE | 2022-03-06 09:57 | Discharge Summary ---
Date of Service March 05, 2022 Admission HPI Per Admitting Provider Pt is a 31 y/o M with hx of obesity came to the ER with 3 weeks history of intermittent cough and worsening SOB. Per pt 3 weeks ago pt developed fever (temp of 101F), chills and fatigue. He initially recovered then about 1 week after he developed cough, fatigue, nasal congestion and ear congestion. He contacted his pcp and he was started on augmentin and tessalon perles (~1 week ago). His home covid test has been negative. Pt recently developed SOB therefore went to PCP office, he was sent from pcp office due to hypoxia Pt had 2 shots of COVID vaccine. At bedside: per pt with oxygen supplement he is feeling better. Denied any CP, abd pain, N/V. No prior hx of smoking, Asthma or COPD. Admission Exam Per Admitting Provider General:.obese pt,NAD HEENT:.NC in place (2L),Normocephalic and atraumatic, Normal Conjunctiva, EOMI, Sclera is non-icteric Lungs:.overall good air entry b/l, no wheezing or crackles Heart:.Normal S1, S2, no murmur Abdominal:.ND, Soft, NT, normal BS MSK:.No deformities of UE and LE, No leg edema Psych:.AAOx3, normal affect Principal Diagnosis (1) COVID-19 virus infection: (2) Hypoxia: (3) Obesity, morbid, BMI 50 or higher: Discharge Exam General- No acute distress, obesity Head- atraumatic Eyes- PERRL, EOMI, ENT- oropharynx clear Neck- supple, no JVD Lungs- clear to auscultation Heart- regular rhythm; no murmur Abdomen- normal bowel sounds, soft, nontender Extremities- no calf tenderness Neuro- alert, oriented x 3; PERRL, EOMI; no facial palsy; no dysarthria Skin- warm & dry Discharge Data Allergies Allergy/AdvReac Type Severity Reaction Status Date / Time No Known Allergies Allergy Verified 03/02/22 16:01 Consultations 03/02/22 17:16 ED Decision to Admit Stat Ordered Studies XR chest 1V portable CLINICAL HISTORY: Shortness of breath. COMPARISON STUDY: CT of the abdomen and pelvis October 28, 2006. FINDINGS: Exam is compromised by suboptimal penetration. Moderate elevation of the right hemidiaphragm has increased. Right lower lung opacity favors atelectasis. There is no pneumothorax or pleural effusion. No consolidation to suggest pneumonia. Cardiac size is normal. IMPRESSION: 1. Increase in moderate elevation of the right hemidiaphragm. 2. Right basilar opacity which favors atelectasis. No consolidation to suggest pneumonia. ACT 112: Negative or not required by law. Electronically signed by: Raudel Eagle M.D. 03/02/2022 1:11 PM Dictated:03/02/22 1310 Hospital Course (1) COVID-19 virus infection: (2) Hypoxia: (3) Obesity, morbid, BMI 50 or higher: Pt is a 31 y/o M with hx of obesity admitted for COVID infection with Hypoxia. COVID infection with Hypoxia: -has been having symptoms for 2-3 weeks - CXR: Right basilar opacity which favors atelectasis. No consolidation to suggest pneumonia. -Procal: neg -LFTs are normal and normal CrCl -Continue Dexamethasone - CRP trending down from 2.4 to 1.2 -We will titrate oxygen off -Pt wa advised to continue with proning -Overnight pulse oximetry showed pt will require oxygen at night (not sure if accurate since pt has not recovered yet from the covid 19) - Pt will need to get outpatient sleep study - 2 step done and pt required 3L NC oxygen with ambulation - Will transition to PO dexamethasone x 3 more days DVT PPx: Lovenox Code Status FULL CODE Disposition Discharge home today Please call to schedule follow up appointment with your primary care provider Emergency Contact: mother: Alayna [phone] Total Time Total Time Spent Total Time Spent (In Minutes): 35 minutes Discharge Plan Discharge Items Patient Disposition: Home - Self-Care Reason For Visit: SOB, REFERRED BY DR Sim Diagnosis: (1) COVID-19 virus infection: (2) Hypoxia: (3) Obesity, morbid, BMI 50 or higher: Activity: Resume your previous activity Non-emergency contact: Primary Care Provider Call non-emergency contact if: you have any medication questions, your symptoms worsen and your temperature is above 101 Follow-up/Referrals: Mo Calabrese MD [Primary Care Provider] - Diet: Regular Addtl Attending Provider Instructions: Follow up with your primary care provider within 1 week ( Please call for the appointment ) Continue 3L nasal canula oxygen with ambulation and at bedtime Seek urgent medical attention if you develop any shortness of breath You will need to get a sleep study as outpatient ( your provider will place the referral ) Continue incentive spirometry and flutter valve Continue to wear mask and practice social distance Home Isolation COVID-19 Instructions The following information about Home Isolation is from the CDC Website: https://www.cdc.gov/coronavirus/2019-ncov/hcp/rcchxeoo-lmacrqu-hkxtoq.html Stay home except to get medical care People who are mildly ill with COVID-19 are able to isolate at home during their illness. You should restrict activities outside your home, except for getting medical care. Do not go to work, school, or public areas. Avoid using public transportation, ride-sharing, or taxis. Separate yourself from other people and animals in your home People: As much as possible, you should stay in a specific room and away from other people in your home. Also, you should use a separate bathroom, if available. Animals: You should restrict contact with pets and other animals while you are sick with COVID-19, just like you would around other people. Although there have not been reports of pets or other animals becoming sick with COVID-19, it is still recommended that people sick with COVID-19 limit contact with animals until more information is known about the virus. When possible, have another member of your household care for your animals while you are sick. If you are sick with COVID-19, avoid contact with your pet, including petting, snuggling, being kissed or licked, and sharing food. If you must care for your pet or be around animals while you are sick, wash your hands before and after you interact with pets and wear a face mask. Call ahead before visiting your doctor If you have a medical appointment, call the healthcare provider and tell them that you have or may have COVID-19. This will help the healthcare providers office take steps to keep other people from getting infected or exposed. Wear a face mask You should wear a face mask when you are around other people (e.g., sharing a room or vehicle) or pets and before you enter a healthcare providers office. If you are not able to wear a face mask (for example, because it causes trouble breathing), then people who live with you should not stay in the same room with you, or they should wear a face mask if they enter your room. Cover your coughs and sneezes Cover your mouth and nose with a tissue when you cough or sneeze. Throw used tissues in a lined trash can. Immediately wash your hands with soap and water for at least 20 seconds or, if soap and water are not available, clean your hands with an alcohol-based hand bulk folder that contains at least 60% alcohol. Clean your hands often Wash your hands often with soap and water for at least 20 seconds, especially after blowing your nose, coughing, or sneezing; going to the bathroom; and before eating or preparing food. If soap and water are not readily available, use an alcohol-based hand bulk folder with at least 60% alcohol, covering all surfaces of your hands and rubbing them together until they feel dry. Soap and water are the best option if hands are visibly dirty. Avoid touching your eyes, nose, and mouth with unwashed hands. Avoid sharing personal household items You should not share dishes, drinking glasses, cups, eating utensils, towels, or bedding with other people or pets in your home. After using these items, they should be washed thoroughly with soap and water. Clean all high-touch surfaces everyday High touch surfaces include counters, tabletops, doorknobs, bathroom fixtures, toilets, phones, keyboards, tablets, and bedside tables. Also, clean any surfaces that may have blood, stool, or body fluids on them. Use a household cleaning spray or wipe, according to the label instructions. Labels contain instructions for safe and effective use of the cleaning product including precautions you should take when applying the product, such as wearing gloves and making sure you have good ventilation during use of the product. Monitor your symptoms Seek prompt medical attention if your illness is worsening (e.g., difficulty breathing).Beforeseeking care, call your healthcare provider and tell them that you have, or are being evaluated for, COVID-19. Put on a face mask before you enter the facility. These steps will help the healthcare providers office to keep other people in the office or waiting room from getting infected or exposed. Ask your healthcare provider to call the local or state health department. Persons who are placed under active monitoring or facilitated self-monitoring should follow instructions provided by their local health department or occupational health professionals, as appropriate. When working with your local health department check their available hours. If you have a medical emergency and need to call 911, notify the dispatch personnel that you have, or are being evaluated for COVID-19. If possible, put on a face mask before emergency medical services arrive. Discontinuing home isolation Patients with confirmed COVID-19 should remain under home isolation precautions until the risk of secondary transmission to others is thought to be low. The decision to discontinue home isolation precautions should be made on a [id number] basis, in consultation with healthcare providers and [facility] and local health departments. Coronavirus disease 2019 (COVID-19) is a virus that causes a respiratory illness. It is caused by a coronavirus called 2019 novel coronavirus (2019- nCoV). There are many types of coronavirus. Coronaviruses are a very common cause of bronchitis. They may sometimes cause lung infection(pneumonia). Symptoms can range from mild to severe respiratory illness. These viruses are also foundin some animals. COVID-19 was first found in people in [facility], in late 2018. In 2020, several cases of COVID-19 have been confirmed in the [place] Public health officials are working to find the source. How the virus spreads is not yet fully known. It may be spread through droplets of fluid that a person coughs or sneezes into the air. It may be spread if you touch a surface with virus on it, such as a handle or object, and then touch your mouth. What are the symptoms of COVID-19? Some people have no symptoms or mild symptoms. Symptoms may appear 2 to 14 days after contact with the virus. Symptoms can include: Fever Coughing Trouble breathing What are possible complications from COVID-19? In many cases, this virus can cause infection (pneumonia) in both lungs. In some cases, this can cause . How is COVID-19 diagnosed? Your healthcare provider will ask about your symptoms. He or she will also ask about your recent travel and contact with sick people. Testing for the virus is only done through the CDC. If yourhealthcare provider thinks you may have COVID- 19, he or she will work with your local health department and the CDC on testing. Follow all instructions from your healthcare provider. COVID-19 is diagnosed by: Nasal and throat swab. A cotton-tipped swab is wiped inside your nose or throat. This is done to check for viruses in your nasal mucus. Sputum culture. A small sample of mucus coughed from your lungs (sputum) is collected if you have a cough. It is checked for the virus. How is COVID-19 treated? There is currently no medicine to treat the virus. Treatment is done to help your body while it fights the virus. This is known as supportive care. Supportive care may include: Pain medicine. These include acetaminophen and ibuprofen. They are used to help ease pain and reduce fever. Bed rest. This helps your body fight the illness. For severe illness, you may need to stay in the hospital. Care during severe illness may include: IV (intravenous) fluids.These are given through a vein to help keep your body hydrated. Oxygen. Supplemental oxygen or ventilation with a breathing machine (ventilator) may be given. This is done to keep enough oxygen in your body. Are you at risk for COVID-19? If youve been to a place where people have been sick with this virus, you are at risk for infection. You are at risk if you: Recently traveled to an affected area Had contact with a sick person who recently traveled to this area Had contact with a person who was diagnosed with COVID-19 How can COVID-19 be prevented? There is no vaccine yet. The best prevention is to not have contact with the virus. The CDC advises that people should not travel to areas where there are COVID-19 outbreaks right now for any reason that is not urgent. To help prevent spreading the infection, wash your hands often, or use an alcohol-basedhand bulk folder. If you are in an area with COVID-19: Wash your hands often. Or use an alcohol-based hand bulk folder often. Only touch your eyes, nose, or mouth with clean hands. Dont have contact with people who are sick. Follow local instructions about being in public. For example, you may be told to not use public transport for a period of time. Stay away from markets that have live or animals. Wash your hands after touching any animals. Don't touch animals that may be sick. Dont share eating or drinking tools with sick people. Dont kiss someone who is sick. Clean surfaces often with disinfectant. If you were in an area with COVID-19 in the last 14 days: Call your healthcare provider. He or she can talk with local health staff to see what action may be needed. Follow all instructions from your provider. Take your temperature every morning and evening for at least 14 days. This is to check for fever. Keep a record of the readings. Keep watch for symptoms of the virus. Tell your provider right away if you have symptoms. If you were in an area with COVID-19 and have a fever or other symptoms: Dont panic. Keep in mind that other illnesses can cause similar symptoms. Stay away from work, school, and public places. Limit physical contact with family members. Don't kiss anyone or share eating or drinking utensils. Clean surfaces you touch with disinfectant. This is to help prevent the virus from spreading. Call your healthcare provider. Explain that you have been exposed to COVID-19 and have symptoms. Do this before going to any hospital. Wait for instructions. Keep in mind that healthcare staff may wear protective equipment such as masks, gowns, gloves, and eye protection. You may be put in a separate room. This is to prevent the possible virus from spreading. Tell the healthcare staff about recent travel. This includes local travel on public transport. Staff may need to find other people you have been in contact with. Follow all instructions the healthcare staff give you. If you have been diagnosed with COVID-19 Follow all instructions from your healthcare provider. Dont leave your home, except to get medical care. Call your healthcare providers office before going. They can prepare and give you instructions. This will help prevent the virus from spreading. Dont go to work, school, or public areas. Dont use public transport or taxis. Stay away from other people in your home. Have them wear face masks around you. Dont share household items or food. Wear a face mask if you can. This includes at home or in a medical facility. Cover your face with a tissue when you cough or sneeze. Throw the tissue away. Wash your hands. Wash your hands often. Caregivers should: Follow all instructions from healthcare staff. Wear a face mask and protective clothing as advised. Wash hands often. Keep track of the sick persons symptoms. Clean surfaces, fabrics, and laundry thoroughly. Keep other people away from the sick person. When to call your healthcare provider Call your healthcare provider: If youve recently traveled and have symptoms If you have been diagnosed with COVID-19 and your symptoms are worse To learn more To find out more about COVID-19, visit the CDC website at www.cdc.gov/coronavirus/2019-ncov/index.html. 6038-[address] [employer]. [address] [place] [address]. All rights reserved. This information is not intended as a substitute for professional medical care. Always follow your healthcare professional's instructions. This information has been adapted from [employer] Pending Studies at Discharge: No Stand-Alone Forms: My [facility]upu, Smoking Cessation Medications and DC Order Prescriptions: New dexamethasone 6 mg tablet 6 mg PO DAILY Qty: 3 RF: 0 guaifenesin [Mucinex] 600 mg Tablet Extended Release 12hr 600 mg PO Q12 PRN (Reason: cough) Qty: 14 RF: 0 Continued albuterol sulfate 90 mcg/actuation HFA aerosol inhaler 2 puff INHALATION Q6H PRN (Reason: Shortness Of Breath Or Wheezing) RF: 0 fluticasone propionate 50 mcg/actuation spray,suspension 2 spray INTRANASAL DAILY RF: 0 Discontinued benzonatate 100 mg capsule 100 - 200 mg PO TID PRN (Reason: Cough) RF: 0 amoxicillin-pot clavulanate 875-125 mg tablet 1 tab PO BID RF: 0 Discharge Orders: Discharge Order (Routine); Ordered 03/05/22 Ordered By: Loren Gonzales Admission Data Admit Date/Time: 03/02/22 17:20 Attending Provider: Loren Gonzales Admit Provider: Xavier Galindo Primary Care Provider: Mo Calabrese Other Providers: Xavier Galindo Other Interventions: Discharge Summary Assessment (RN) Last Done: 03/05/22 17:00
== END 2022-03-05 18:05 | disposition home or self-care (01) | DRG 178 ==
LOC: ED 11:59 → EDINP 17:20 → SUATTDRO 17:20 → 2S 18:29